=== PATIENT | male | born 1940 | race Caucasian/White ===

== ENCOUNTER 2022-05-24 12:21 | Inpatient (IN) | payer MEDICARE ==
[2022-05-24 14:19] VITALS: BMI 18.1
[2022-05-24] MEDS ORDERED: Acetaminophen 325 MG TAB PO PRN (15:07)
[2022-05-24] MEDS ORDERED: Lorazepam 2 MG/ML VIAL SLOW IVP PRN (15:43)
[2022-05-24] MEDS ORDERED: Potassium Chloride 20 MEQ TAB PO SCH (17:00)
[2022-05-24] MEDS: Sodium Chloride 0.9% 1,000 ML IV SCH (17:27)
[2022-05-24 17:35] LABS: Anion Gap 14 mmol/L (10-20); BUN (Urea Nitrogen) 50 mg/dL (8.4-25.7); Calc. Creatinine Clearance 30 mL/min (70-130); Calcium 8.3 mg/dL (7.8-10.44); Carbon Dioxide 21 mmol/L (23-31); Chloride 100 mmol/L (98-107); Estimated GFR 44; Glucose 93 mg/dL (83-110); Potassium 3.2 mmol/L (3.5-5.1); Sodium 132 mmol/L (136-145)
[2022-05-24] MEDS ORDERED: Famotidine 20 MG TAB PO SCH (21:00)
[2022-05-24 21:23] LABS: Anion Gap 15 mmol/L (10-20); BUN (Urea Nitrogen) 48 mg/dL (8.4-25.7); Calc. Creatinine Clearance 32 mL/min (70-130); Calcium 8.4 mg/dL (7.8-10.44); Carbon Dioxide 21 mmol/L (23-31); Chloride 101 mmol/L (98-107); Estimated GFR 47; Glucose 95 mg/dL (83-110); Potassium 3.7 mmol/L (3.5-5.1); Sodium 133 mmol/L (136-145)
[2022-05-25 01:12] LABS: Anion Gap 14 mmol/L (10-20); BUN (Urea Nitrogen) 46 mg/dL (8.4-25.7); Calc. Creatinine Clearance 37 mL/min (70-130); Calcium 8.2 mg/dL (7.8-10.44); Carbon Dioxide 18 mmol/L (23-31); Chloride 102 mmol/L (98-107); Estimated GFR 55; Glucose 86 mg/dL (83-110); Potassium 3.5 mmol/L (3.5-5.1); Sodium 130 mmol/L (136-145)
[2022-05-25 04:57] LABS: Anion Gap 14 mmol/L (10-20); BUN (Urea Nitrogen) 42 mg/dL (8.4-25.7); Calc. Creatinine Clearance 39 mL/min (70-130); Calcium 8.3 mg/dL (7.8-10.44); Carbon Dioxide 18 mmol/L (23-31); Chloride 103 mmol/L (98-107); Estimated GFR 59; Glucose 77 mg/dL (83-110); Potassium 3.1 mmol/L (3.5-5.1); Sodium 132 mmol/L (136-145)
[2022-05-25 05:04] LABS: Band 17 % (5-11); Burr Cells SLIGHT = 2-5 cells (100X) (0-1/hpf); Hemoglobin 10.3 g/dL (14.0-18.0); Lymphocytes 11 % (21-51); MDiff Complete? YES; Mean Corpuscular HGB CONC 33.8 g/dL (32.0-36.0); Mean Corpuscular Hemoglobin 34.5 pg (27.0-31.0); Mean Platelet Volume 9.2 fL (7.4-10.4); Monocytes 18 % (0-10); Neutrophil 54 % (42-75); Platelet Count 81 thou/uL (130-400); Platelet Morphology Comment Appears Decreased; RBC Distribution Width 12.1 % (11.5-14.5); Red Blood Cell (RBC) Count 2.98 mill/uL (4.70-6.10); White Blood Cell (WBC) Count 7.3 thou/uL (4.8-10.8)
[2022-05-25] MEDS: Sodium Chloride 0.9% 1,000 ML IV SCH ×2 (05:28→23:16)
[2022-05-25] MEDS ORDERED: Amlodipine 5 MG TAB PO SCH (09:00)
[2022-05-25 09:21] LABS: Anion Gap 15 mmol/L (10-20); BUN (Urea Nitrogen) 37 mg/dL (8.4-25.7); Calc. Creatinine Clearance 42 mL/min (70-130); Calcium 8.2 mg/dL (7.8-10.44); Carbon Dioxide 16 mmol/L (23-31); Chloride 104 mmol/L (98-107); Estimated GFR 66; Glucose 75 mg/dL (83-110); Potassium 3.1 mmol/L (3.5-5.1); Sodium 132 mmol/L (136-145)
[2022-05-25] MEDS ORDERED: Magnevist 469MG/ML 20 ML VIAL ONE (10:53)
[2022-05-25] MEDS: Folic Acid 1 MG TAB PO SCH (11:05)
[2022-05-25] MEDS: Thiamine 100 MG TAB PO SCH (11:05)
[2022-05-25 16:02] LABS: Campy jejuni + coli by PCR Negative (Negative); STEC Shiga Toxin 1+2 Negative (Negative); Salmonella spp. by PCR POSITIVE (Negative); Shigella spp + EIEC by PCR Negative (Negative)
[2022-05-25] MEDS ORDERED: Famotidine 20 MG TAB PO SCH (21:00)
[2022-05-26 04:53] LABS: Anion Gap 9 mmol/L (10-20); BUN (Urea Nitrogen) 22 mg/dL (8.4-25.7); Calc. Creatinine Clearance 63 mL/min (70-130); Calcium 8.2 mg/dL (7.8-10.44); Carbon Dioxide 22 mmol/L (23-31); Chloride 102 mmol/L (98-107); Estimated GFR 90; Glucose 94 mg/dL (83-110); Sodium 130 mmol/L (136-145)
[2022-05-26 04:57] LABS: Potassium 2.8 mmol/L (3.5-5.1)
[2022-05-26 05:14] LABS: Band 11 % (5-11); Hemoglobin 9.9 g/dL (14.0-18.0); Hypochromia SLIGHT = 6-15 cells (100X) (0-5/hpf); Lymphocytes 13 % (21-51); MDiff Complete? YES; Macrocytosis SLIGHT = 6-15 cells (100X) (0-5/hpf); Mean Corpuscular HGB CONC 33.9 g/dL (32.0-36.0); Mean Corpuscular Hemoglobin 34.5 pg (27.0-31.0); Mean Platelet Volume 8.8 fL (7.4-10.4); Monocytes 10 % (0-10); Neutrophil 66 % (42-75); Platelet Count 73 thou/uL (130-400); Platelet Morphology Comment Appears Decreased; RBC Distribution Width 11.9 % (11.5-14.5); Red Blood Cell (RBC) Count 2.87 mill/uL (4.70-6.10); White Blood Cell (WBC) Count 5.8 thou/uL (4.8-10.8)
[2022-05-26] MEDS ORDERED: Potassium Chloride 20 MEQ TAB PO SCH (05:30)
[2022-05-26] MEDS ORDERED: Electrolyte Replacement Protocol FS PRN (05:30)
[2022-05-26 06:48] LABS: Magnesium 1.3 mg/dL (1.6-2.6)
[2022-05-26] MEDS ORDERED: Magnesium Sulfate In Water 4 GM in Premix Bag 1 BAG IVPB SCH (08:00)
[2022-05-26] MEDS: Thiamine 100 MG TAB PO SCH (09:59)
[2022-05-26] MEDS: Sodium Chloride 0.9% 1,000 ML IV SCH ×2 (09:59→21:21)
[2022-05-26] MEDS: Folic Acid 1 MG TAB PO SCH (09:59)
[2022-05-26] MEDS: Potassium Chloride 20 MEQ TAB PO SCH ×2 (12:00→17:21)
[2022-05-27] MEDS: Potassium Chloride 20 MEQ TAB PO SCH ×2 (01:09→05:42)
[2022-05-27 04:48] LABS: ALT (SGPT) 60 U/L (8-55); AST (SGOT) 59 U/L (5-34); Albumin 2.8 g/dL (3.4-4.8); Alkaline Phosphatase 27 U/L (40-110); Bilirubin, Direct 0.4 mg/dL (0.1-0.3); Bilirubin, Total 0.7 mg/dL (0.2-1.2); Magnesium 1.5 mg/dL (1.6-2.6); Protein, Total 5.3 g/dL (5.8-8.1)
[2022-05-27 04:59] LABS: Anion Gap 10 mmol/L (10-20); BUN (Urea Nitrogen) 10 mg/dL (8.4-25.7); Calc. Creatinine Clearance 72 mL/min (70-130); Carbon Dioxide 23 mmol/L (23-31); Chloride 103 mmol/L (98-107); Estimated GFR 94; Glucose 92 mg/dL (83-110); Sodium 132 mmol/L (136-145)
[2022-05-27 05:09] LABS: HBCM Index 0.07 S/CO (0-0.79); HBSAg Index 0.45 S/CO (0-0.99); Hep A IgM AB Non-Reactive (NonReactive); Hep A IgM S/CO 0.51 S/CO (0-0.79); Hep B Surf Ag Non-Reactive S/CO (NonReactive); Hep C IgG Ab Non-Reactive (NonReactive); Hep C Index 0.16 S/CO (0-0.79); Hepatitis B Core IgM Abs Non-Reactive (NonReactive)
[2022-05-27 05:33] LABS: Band 3 % (5-11); Eosinophils 1 % (0-10); Hemoglobin 9.4 g/dL (14.0-18.0); Lymphocytes 27 % (21-51); MDiff Complete? YES; Mean Corpuscular Hemoglobin 33.4 pg (27.0-31.0); Mean Platelet Volume 8.5 fL (7.4-10.4); Metamyelocyte 2 % (0-0); Monocytes 23 % (0-10); Myelocyte 3 % (0-0); Neutrophil 41 % (42-75); Platelet Count 86 thou/uL (130-400); Platelet Morphology Comment Appears Decreased; RBC Distribution Width 12.1 % (11.5-14.5); Red Blood Cell (RBC) Count 2.82 mill/uL (4.70-6.10)
[2022-05-27] MEDS: Sodium Chloride 0.9% 1,000 ML IV SCH (05:42)
[2022-05-27] MEDS ORDERED: Magnesium 2 GM/50 ML(in water) 2 GM in Premix Bag 1 BAG IVPB SCH (06:00)
[2022-05-27] MEDS: Folic Acid 1 MG TAB PO SCH (08:27)
[2022-05-27] MEDS: Thiamine 100 MG TAB PO SCH (08:28)
[2022-05-28 06:01] LABS: Band 7 % (5-11); Hemoglobin 10.5 g/dL (14.0-18.0); Hypochromia SLIGHT = 6-15 cells (100X) (0-5/hpf); Lymphocytes 29 % (21-51); MDiff Complete? YES; Mean Corpuscular HGB CONC 33.6 g/dL (32.0-36.0); Mean Corpuscular Hemoglobin 34.5 pg (27.0-31.0); Monocytes 15 % (0-10); Neutrophil 48 % (42-75); Platelet Count 114 thou/uL (130-400); Platelet Morphology Comment Appears Decreased; RBC Distribution Width 12.3 % (11.5-14.5); Reactive Lymphocytes 1 % (0-10); Red Blood Cell (RBC) Count 3.06 mill/uL (4.70-6.10)
[2022-05-28 07:07] LABS: Anion Gap 11 mmol/L (10-20); BUN (Urea Nitrogen) 7 mg/dL (8.4-25.7); Calc. Creatinine Clearance 74 mL/min (70-130); Calcium 8.5 mg/dL (7.8-10.44); Carbon Dioxide 25 mmol/L (23-31); Chloride 99 mmol/L (98-107); Estimated GFR 95; Glucose 91 mg/dL (83-110); Magnesium 1.3 mg/dL (1.6-2.6); Potassium 3.9 mmol/L (3.5-5.1); Sodium 131 mmol/L (136-145)
[2022-05-28] MEDS: Folic Acid 1 MG TAB PO SCH (08:25)
[2022-05-28] MEDS: Thiamine 100 MG TAB PO SCH (08:25)
[2022-05-28] MEDS ORDERED: Magnesium Sulfate In Water 4 GM in Premix Bag 1 BAG IVPB SCH (09:00)
[2022-05-28] MEDS ORDERED: Saccharomyces boulardii 250 MG CAP PO SCH (14:45)
[2022-05-28 15:43] LABS: Magnesium 1.9 mg/dL (1.6-2.6)
[2022-05-28] MEDS ORDERED: Magnesium 2 GM/50 ML(in water) 2 GM in Premix Bag 1 BAG IVPB SCH (21:00)
[2022-05-29 05:34] LABS: Anion Gap 11 mmol/L (10-20); BUN (Urea Nitrogen) 7 mg/dL (8.4-25.7); Calc. Creatinine Clearance 73 mL/min (70-130); Calcium 8.7 mg/dL (7.8-10.44); Carbon Dioxide 30 mmol/L (23-31); Chloride 94 mmol/L (98-107); Estimated GFR 94; Glucose 102 mg/dL (83-110); Magnesium 1.8 mg/dL (1.6-2.6); Potassium 3.4 mmol/L (3.5-5.1); Sodium 132 mmol/L (136-145)
[2022-05-29] MEDS ORDERED: Magnesium 2 GM/50 ML(in water) 2 GM in Premix Bag 1 BAG IVPB SCH (08:00)
[2022-05-29] MEDS ORDERED: Potassium Chloride 20 MEQ TAB PO SCH (08:00)
[2022-05-29] MEDS: Thiamine 100 MG TAB PO SCH (08:30)
[2022-05-29] MEDS: Folic Acid 1 MG TAB PO SCH (08:30)
[2022-05-29] MEDS: Saccharomyces boulardii 250 MG CAP PO SCH (08:30)
[2022-05-30 05:42] LABS: Anion Gap 15 mmol/L (10-20); BUN (Urea Nitrogen) 10 mg/dL (8.4-25.7); Calc. Creatinine Clearance 69 mL/min (70-130); Calcium 8.6 mg/dL (7.8-10.44); Carbon Dioxide 21 mmol/L (23-31); Chloride 98 mmol/L (98-107); Estimated GFR 92; Glucose 100 mg/dL (83-110); Magnesium 1.5 mg/dL (1.6-2.6); Sodium 130 mmol/L (136-145)
[2022-05-30] MEDS ORDERED: Magnesium 2 GM/50 ML(in water) 2 GM in Premix Bag 1 BAG IVPB SCH (08:00)
[2022-05-30] MEDS: Thiamine 100 MG TAB PO SCH (08:35)
[2022-05-30] MEDS: Folic Acid 1 MG TAB PO SCH (08:35)
[2022-05-30] MEDS: Saccharomyces boulardii 250 MG CAP PO SCH (08:35)
[2022-05-31] MEDS: Thiamine 100 MG TAB PO SCH (08:34)
[2022-05-31] MEDS: Folic Acid 1 MG TAB PO SCH (08:34)
[2022-05-31] MEDS: Saccharomyces boulardii 250 MG CAP PO SCH (08:34)
[2022-05-31 08:55] VITALS: BP 100/67; TEMP 97.9
== END 2022-05-31 18:20 | disposition swing bed (61) | DRG 371 ==
LOC: INTOOBSV 13:57 → 2NO 13:57 → OBSVTOIN 05-25 07:37 → MSONC 05-27 16:15
PROVIDERS: ADMIT Hospitalist; ATTEND Hospitalist
DX: A02.0 Salmonella enteritis (principal); E43 Unspecified severe protein-calorie malnutrition; N17.9 Acute kidney failure, unspecified; E87.1 Hypo-osmolality and hyponatremia; E87.2 Acidosis; Z68.1 Body mass index [BMI] 19.9 or less, adult; Z20.822 Contact with and (suspected) exposure to COVID-19; Z66 Do not resuscitate; E87.6 Hypokalemia; F17.220 Nicotine dependence, chewing tobacco, uncomplicated; I10 Essential (primary) hypertension; G93.89 Other specified disorders of brain; E86.0 Dehydration; D69.6 Thrombocytopenia, unspecified; L89.322 Pressure ulcer of left buttock, stage 2; L89.312 Pressure ulcer of right buttock, stage 2; Z79.899 Other long term (current) drug therapy
CPT/HCPCS: 36415; 70552; 72192; 80048; 80074; 80076; 83605; 83630; 83735; 85025; 87324; 87449; 87505; 93306; 95712; 95819; 95957; 97139; A9579; G0378; J3475; J7050

== ENCOUNTER 2023-03-25 19:22 | Inpatient (IN) | payer MEDICARE ==
[2023-03-25] MEDS ORDERED: LORazepam 2 MG/ML SYR.(CARPUJECT) ONE (19:46)
[2023-03-25 20:17] LABS: #Monocytes 2.5 thou/uL (0.11-0.59); #Neutrophils 11.1 thou/uL (1.40-6.50); %Basophils 0.1 % (0.0-1.0); %Eosinophils 0.1 % (0.0-10.0); %Lymphocytes 3.5 % (21.0-51.0); %Monocytes 17.4 % (0.0-10.0); %Neutrophils 78.4 % (42.0-75.0); Hemoglobin 11.7 g/dL (14.0-18.0); Mean Corpuscular HGB CONC 35.3 g/dL (32.0-36.0); Mean Corpuscular Hemoglobin 34.3 pg (27.0-31.0); Mean Corpuscular Volume 97.1 fl (78.0-98.0); Mean Platelet Volume 10.3 fL (7.4-10.4); Platelet Count 167 10x3/uL (130-400); RBC Distribution Width 12.1 % (11.5-14.5); Red Blood Cell (RBC) Count 3.41 mill/uL (4.70-6.10); White Blood Cell (WBC) Count 14.1 10x3/uL (4.8-10.8)
[2023-03-25 20:39] LABS: ALT (SGPT) 107 U/L (8-55); AST (SGOT) 464 U/L (5-34); Albumin 3.3 g/dL (3.4-4.8); Alkaline Phosphatase 50 U/L (40-110); Anion Gap 15 mmol/L (10-20); BUN (Urea Nitrogen) 9 mg/dL (8.4-25.7); Bilirubin, Total 0.7 mg/dL (0.2-1.2); Calc. Creatinine Clearance 0 mL/min (70-130); Calcium 7.6 mg/dL (7.8-10.44); Carbon Dioxide 14 mmol/L (23-31); Chloride 102 mmol/L (98-107); Estimated GFR 89; Globulin 2.6 g/dL (2.4-3.5); Glucose 144 mg/dL (83-110); Magnesium 1.2 mg/dL (1.6-2.6); Potassium 4.7 mmol/L (3.5-5.1); Protein, Total 5.9 g/dL (5.8-8.1); Sodium 126 mmol/L (136-145)
[2023-03-25] MEDS ORDERED: Magnesium 2 GM/50 ML BAG (IN WATER) ONE (21:04)
[2023-03-25] MEDS ORDERED: Dextrose 5% in Water 1,000 ML IV PRN (21:50)
[2023-03-25] MEDS ORDERED: hydrALAZINE 20 MG/ML VIAL SLOW IVP PRN (21:50)
[2023-03-25] MEDS ORDERED: Morphine 4 MG/ML VIAL SLOW IVP PRN (21:50)
[2023-03-25] MEDS ORDERED: Morphine 2 MG/ML VIAL SLOW IVP PRN (21:50)
[2023-03-25] MEDS ORDERED: Glucagon 1 MG/ML KIT IM PRN (21:50)
[2023-03-25] MEDS ORDERED: Ondansetron PF 4 MG/2 ML Vial IVP PRN (21:50)
[2023-03-25] MEDS ORDERED: Dextrose 50% Abboject 50 ML SYRINGE SLOW IVP PRN (21:50)
[2023-03-25] MEDS ORDERED: Sodium Chloride 0.9% 1,000 ML IV SCH (22:00)
[2023-03-25] MEDS ORDERED: Magnesium 2 GM/50 ML(in water) 2 GM in Premix Bag 1 BAG IVPB SCH (22:00)
[2023-03-25] MEDS ORDERED: Metoprolol Tartrate 50 MG TAB PO SCH (22:00)
[2023-03-25 22:01] LABS: CK (CPK) 23756 U/L (30-200)
[2023-03-25 22:04] LABS: Magnesium 1.1 mg/dL (1.6-2.6); Phosphorus 2.7 mg/dL (2.3-4.7)
[2023-03-25 22:20] LABS: INR-International Normal Ratio 1.2; PTT 31.4 sec (22.9-36.1); Prothrombin Time 15.4 sec (12.0-14.7)
[2023-03-25] MEDS ORDERED: Sodium Phosphate 15 MMOL in Sodium Chloride 0.9% 250 ML 250 ML IVPB SCH (23:00)
[2023-03-25 23:06] LABS: Lactic Acid 2.6 mmol/L (0.5-2.2)
[2023-03-26] MEDS: Sodium Chloride 0.9% 1,000 ML IV SCH ×5 (00:02→22:11)
[2023-03-26 01:11] LABS: Bacteria/HPF None Seen HPF (None Seen); Bilirubin Negative (Negative); Blood, Urine 3+ (Negative); CAUTI Indications for Culture Alt mental st,lethar; Clarity Clear (Clear); Glucose, Urine (Dipstick) Normal (Negative); Ketone, Urine Negative (Negative); Leukocyte Negative Leu/uL (Negative); Nitrite Negative (Negative); Protein, Urine (Dipstick) 30 mg/dL (Neg-Trace); RBC/HPF 0-3 HPF (0-3); Specific Gravity, Urine 1.018 (1.002-1.036); Squamous Epithelial None Seen HPF (0-3); Urobilinogen Normal mg/dL (Less than 2); WBC/HPF 0-3 HPF (0-3)
[2023-03-26 01:43] LABS: Urine Culture Reflex No No
[2023-03-26] MEDS: Oxazepam 10 MG CAP PO SCH ×4 (01:56→22:08)
[2023-03-26 03:45] LABS: #Monocytes 2.7 thou/uL (0.11-0.59); #Neutrophils 13.3 thou/uL (1.40-6.50); %Basophils 0.1 % (0.0-1.0); %Lymphocytes 5.8 % (21.0-51.0); %Monocytes 15.9 % (0.0-10.0); %Neutrophils 77.8 % (42.0-75.0); Hemoglobin 10.7 g/dL (14.0-18.0); Mean Corpuscular HGB CONC 35.3 g/dL (32.0-36.0); Mean Corpuscular Hemoglobin 34.3 pg (27.0-31.0); Mean Corpuscular Volume 97.1 fl (78.0-98.0); Platelet Count 147 10x3/uL (130-400); RBC Distribution Width 12.1 % (11.5-14.5); Red Blood Cell (RBC) Count 3.12 mill/uL (4.70-6.10); White Blood Cell (WBC) Count 17.1 10x3/uL (4.8-10.8)
[2023-03-26 04:04] LABS: Lactic Acid 2.8 mmol/L (0.5-2.2)
[2023-03-26 04:10] LABS: Anion Gap 12 mmol/L (10-20); BUN (Urea Nitrogen) 8 mg/dL (8.4-25.7); Calc. Creatinine Clearance 67 mL/min (70-130); Calcium 7.3 mg/dL (7.8-10.44); Carbon Dioxide 15 mmol/L (23-31); Chloride 105 mmol/L (98-107); Estimated GFR 89; Glucose 129 mg/dL (83-110); Magnesium 1.6 mg/dL (1.6-2.6); Phosphorus 2.7 mg/dL (2.3-4.7); Potassium 4.2 mmol/L (3.5-5.1); Sodium 128 mmol/L (136-145)
[2023-03-26 04:16] LABS: Troponin I 0.246 ng/mL (< 0.028)
[2023-03-26 04:36] LABS: CK (CPK) 15765 U/L (30-200)
[2023-03-26] MEDS ORDERED: levETIRAcetam in NS 500 MG in Premix Bag 1 BAG IVPB SCH (09:00)
[2023-03-26] MEDS ORDERED: Folic Acid 1 MG TAB PO SCH (09:00)
[2023-03-26] MEDS ORDERED: Metoprolol Tartrate 50 MG TAB PO SCH ×2 (09:00→21:15)
[2023-03-26] MEDS: Multivitamin W/ Minerals 1 TAB PO SCH (11:16)
[2023-03-26] MEDS: Famotidine/PF 20 mg/2ml Vial SLOW IVP SCH ×2 (11:16→22:06)
[2023-03-26] MEDS: levETIRAcetam 500 MG/5 ML VIAL SLOW IVP SCH ×2 (11:16→22:06)
[2023-03-26] MEDS: Thiamine 100 MG TAB PO SCH (11:16)
[2023-03-26 16:36] LABS: Hemoglobin 10.1 g/dL (14.0-18.0); Manual Diff?? YES; Mean Corpuscular HGB CONC 34.5 g/dL (32.0-36.0); Mean Corpuscular Hemoglobin 34.4 pg (27.0-31.0); Mean Corpuscular Volume 99.7 fl (78.0-98.0); Mean Platelet Volume 10.4 fL (7.4-10.4); Platelet Count 143 10x3/uL (130-400); RBC Distribution Width 12.3 % (11.5-14.5); Red Blood Cell (RBC) Count 2.94 mill/uL (4.70-6.10); White Blood Cell (WBC) Count 16.4 10x3/uL (4.8-10.8)
[2023-03-26 16:44] LABS: Delete Auto Diff?? YES
[2023-03-26 17:07] LABS: Band 7 % (5-11); Burr Cells SLIGHT = 2-5 cells HPF (0-1); CellaVision Operator ID LAB.KB; Lymphocytes 9 % (21-51); Macrocytosis SLIGHT = 6-15 cells HPF (0-5); Monocytes 12 % (0-10); Neutrophil 72 % (42-75); Ovalocytes SLIGHT = 2-5 cells HPF (0-1); Platelet Adequacy Comment Platelets Normal; Polychromasia SLIGHT = 2-3 cells HPF (0-2); Smudge Cells 18.2 %; Total Cell Count 99
[2023-03-26] MEDS ORDERED: Labetalol HCl 100 MG/20 ML VIAL SLOW IVP PRN (21:00)
[2023-03-26] MEDS ORDERED: QUEtiapine 25 MG TAB PO SCH (21:00)
[2023-03-26] MEDS: Lisinopril 20 MG TAB PO SCH (22:06)
[2023-03-27] MEDS: Sodium Chloride 0.9% 1,000 ML IV SCH ×3 (02:00→20:26)
[2023-03-27 03:57] LABS: Hemoglobin 9.4 g/dL (14.0-18.0); Manual Diff?? YES; Mean Corpuscular HGB CONC 33.6 g/dL (32.0-36.0); Mean Corpuscular Hemoglobin 34.3 pg (27.0-31.0); Mean Corpuscular Volume 102.2 fl (78.0-98.0); Mean Platelet Volume 10.8 fL (7.4-10.4); Platelet Count 134 10x3/uL (130-400); RBC Distribution Width 12.5 % (11.5-14.5); Red Blood Cell (RBC) Count 2.74 mill/uL (4.70-6.10); White Blood Cell (WBC) Count 11.6 10x3/uL (4.8-10.8)
[2023-03-27 04:11] LABS: Delete Auto Diff?? YES
[2023-03-27 04:20] LABS: Anion Gap 14 mmol/L (10-20); BUN (Urea Nitrogen) 9 mg/dL (8.4-25.7); Calc. Creatinine Clearance 75 mL/min (70-130); Carbon Dioxide 18 mmol/L (23-31); Chloride 109 mmol/L (98-107); Estimated GFR 92; Glucose 83 mg/dL (83-110); Magnesium 1.5 mg/dL (1.6-2.6); Phosphorus 2.6 mg/dL (2.3-4.7); Potassium 5.1 mmol/L (3.5-5.1); Sodium 136 mmol/L (136-145)
[2023-03-27 04:47] LABS: CK (CPK) 7983 U/L (30-200)
[2023-03-27 05:27] LABS: Band 3 % (5-11); Lymphocytes 10 % (21-51); Monocytes 15 % (0-10); Neutrophil 72 % (42-75)
[2023-03-27] MEDS: Oxazepam 10 MG CAP PO SCH ×3 (05:33→20:24)
[2023-03-27] MEDS ORDERED: Folic Acid 1 MG TAB PO SCH (09:00)
[2023-03-27] MEDS ORDERED: Thiamine 100 MG TAB PO SCH (09:00)
[2023-03-27] MEDS ORDERED: Metoprolol Tartrate 50 MG TAB PO SCH (09:00)
[2023-03-27] MEDS: Lisinopril 20 MG TAB PO SCH ×2 (09:23→20:23)
[2023-03-27] MEDS: Thiamine 100 MG TAB PO SCH (09:23)
[2023-03-27] MEDS: Multivitamin W/ Minerals 1 TAB PO SCH (09:23)
[2023-03-27] MEDS: Folic Acid 1 MG TAB PO SCH (09:23)
[2023-03-27] MEDS: Metoprolol Tartrate 50 MG TAB PO SCH ×2 (09:24→20:23)
[2023-03-27] MEDS: Famotidine/PF 20 mg/2ml Vial SLOW IVP SCH (09:24)
[2023-03-27] MEDS: levETIRAcetam 500 MG/5 ML VIAL SLOW IVP SCH ×2 (09:24→20:23)
[2023-03-27] MEDS: Melatonin 3 MG TAB PO PRN (20:23)
[2023-03-27] MEDS: Famotidine 20 MG TAB PER TUBE SCH (20:23)
[2023-03-28 03:44] LABS: #Monocytes 1.6 thou/uL (0.11-0.59); #Neutrophils 5.7 thou/uL (1.40-6.50); %Basophils 0.1 % (0.0-1.0); %Monocytes 19.5 % (0.0-10.0); %Neutrophils 68.7 % (42.0-75.0); Hemoglobin 8.6 g/dL (14.0-18.0); Mean Corpuscular HGB CONC 34.1 g/dL (32.0-36.0); Mean Corpuscular Hemoglobin 34.4 pg (27.0-31.0); Mean Corpuscular Volume 100.8 fl (78.0-98.0); Platelet Count 138 10x3/uL (130-400); RBC Distribution Width 12.2 % (11.5-14.5); White Blood Cell (WBC) Count 8.3 10x3/uL (4.8-10.8)
[2023-03-28 04:03] LABS: Anion Gap 11 mmol/L (10-20); BUN (Urea Nitrogen) 9 mg/dL (8.4-25.7); Calc. Creatinine Clearance 88 mL/min (70-130); Calcium 7.3 mg/dL (7.8-10.44); Carbon Dioxide 19 mmol/L (23-31); Chloride 108 mmol/L (98-107); Estimated GFR 96; Glucose 88 mg/dL (83-110); Potassium 3.3 mmol/L (3.5-5.1); Sodium 135 mmol/L (136-145)
[2023-03-28 04:16] LABS: CK (CPK) 6525 U/L (30-200)
[2023-03-28] MEDS: Oxazepam 10 MG CAP PO SCH ×2 (07:04→19:53)
[2023-03-28] MEDS ORDERED: Magnesium 2 GM/50 ML(in water) 2 GM in Premix Bag 1 BAG IVPB SCH (07:15)
[2023-03-28] MEDS ORDERED: Potassium Chloride 20 MEQ TAB PO SCH ×2 (07:15→08:00)
[2023-03-28] MEDS: Sodium Chloride 0.9% 1,000 ML IV SCH (07:29)
[2023-03-28] MEDS ORDERED: Potassium Bicarbonate/Cit Ac 20 MEQ TAB PO SCH ×2 (07:45→08:00)
[2023-03-28 08:12] LABS: Magnesium 1.2 mg/dL (1.6-2.6); Phosphorus 1.5 mg/dL (2.3-4.7)
[2023-03-28] MEDS: Famotidine 20 MG TAB PER TUBE SCH ×2 (08:43→19:53)
[2023-03-28] MEDS: Folic Acid 1 MG TAB PO SCH (08:44)
[2023-03-28] MEDS: Multivitamin W/ Minerals 1 TAB PO SCH (08:44)
[2023-03-28] MEDS: Thiamine 100 MG TAB PO SCH (08:44)
[2023-03-28] MEDS: levETIRAcetam 500 MG/5 ML VIAL SLOW IVP SCH ×2 (08:44→19:52)
[2023-03-28] MEDS ORDERED: Furosemide 20 MG/2 ML VIAL SLOW IVP SCH (09:15)
[2023-03-28] MEDS: Lisinopril 20 MG TAB PO SCH ×3 (09:24→19:52)
[2023-03-28] MEDS: Metoprolol Tartrate 50 MG TAB PO SCH ×2 (09:24→19:53)
[2023-03-28] MEDS: Potassium Chloride 20 MEQ in Premix Bag 1 BAG IVPB SCH ×2 (09:27→12:12)
[2023-03-28 09:50] VITALS: BMI 22.9
[2023-03-28] MEDS ORDERED: Potassium Phosphate 30 MMOL in Sodium Chloride 0.9% 250 ML 250 ML IVPB SCH ×2 (12:45→19:00)
[2023-03-28 16:45] LABS: Anion Gap 11 mmol/L (10-20); BUN (Urea Nitrogen) 11 mg/dL (8.4-25.7); Calc. Creatinine Clearance 82 mL/min (70-130); Calcium 8.2 mg/dL (7.8-10.44); Carbon Dioxide 23 mmol/L (23-31); Chloride 103 mmol/L (98-107); Estimated GFR 93; Glucose 136 mg/dL (83-110); Magnesium 1.5 mg/dL (1.6-2.6); Potassium 3.4 mmol/L (3.5-5.1); Sodium 134 mmol/L (136-145)
[2023-03-28] MEDS ORDERED: Magnesium 2 GM/50 ML(in water) 4 GM in Premix Bag 1 BAG IVPB SCH (17:30)
[2023-03-28] MEDS: Melatonin 3 MG TAB PO PRN (23:22)
[2023-03-29 05:44] LABS: Anion Gap 11 mmol/L (10-20); BUN (Urea Nitrogen) 11 mg/dL (8.4-25.7); Calc. Creatinine Clearance 97 mL/min (70-130); Calcium 8.1 mg/dL (7.8-10.44); Carbon Dioxide 24 mmol/L (23-31); Chloride 106 mmol/L (98-107); Estimated GFR 98; Glucose 107 mg/dL (83-110); Magnesium 1.5 mg/dL (1.6-2.6); Phosphorus 3.6 mg/dL (2.3-4.7); Potassium 3.9 mmol/L (3.5-5.1); Sodium 137 mmol/L (136-145)
[2023-03-29] MEDS ORDERED: Magnesium Sulfate In Water 4 GM in Premix Bag 1 BAG IVPB SCH (06:30)
[2023-03-29 07:51] LABS: Hemoglobin 9.3 g/dL (14.0-18.0); Manual Diff?? YES; Mean Corpuscular HGB CONC 34.3 g/dL (32.0-36.0); Mean Corpuscular Hemoglobin 34.3 pg (27.0-31.0); Mean Platelet Volume 9.5 fL (7.4-10.4); Platelet Count 173 10x3/uL (130-400); RBC Distribution Width 12.6 % (11.5-14.5); Red Blood Cell (RBC) Count 2.71 mill/uL (4.70-6.10); White Blood Cell (WBC) Count 8.3 10x3/uL (4.8-10.8)
[2023-03-29 07:53] LABS: Delete Auto Diff?? YES
[2023-03-29 08:21] LABS: Band 1 % (5-11); CellaVision Operator ID lab.abc; Lymphocytes 13 % (21-51); Metamyelocyte 1 % (0-0); Monocytes 10 % (0-10); Neutrophil 76 % (42-75); Platelet Adequacy Comment Platelets Normal; Polychromasia SLIGHT = 2-3 cells HPF (0-2); Smudge Cells 5.9 %; Total Cell Count 102
[2023-03-29] MEDS: levETIRAcetam 500 MG/5 ML VIAL SLOW IVP SCH ×2 (09:12→22:31)
[2023-03-29] MEDS: Multivitamin W/ Minerals 1 TAB PO SCH (09:13)
[2023-03-29] MEDS: Thiamine 100 MG TAB PO SCH (09:13)
[2023-03-29] MEDS: Tamsulosin HCl 0.4 MG CAP PO SCH (09:13)
[2023-03-29] MEDS: Senokot S 8.6-50 MG TAB PO SCH ×2 (09:13→22:33)
[2023-03-29] MEDS: Folic Acid 1 MG TAB PO SCH (09:13)
[2023-03-29] MEDS: Metoprolol Tartrate 50 MG TAB PO SCH ×2 (09:13→22:32)
[2023-03-29] MEDS: Lisinopril 20 MG TAB PO SCH ×2 (09:13→22:32)
[2023-03-29] MEDS: Polyethylene Glycol 3350 17 GM Packet PO SCH (09:13)
[2023-03-29] MEDS: Famotidine 20 MG TAB PER TUBE SCH ×2 (09:13→22:33)
[2023-03-29] MEDS: Oxazepam 10 MG CAP PO SCH ×2 (09:13→22:32)
[2023-03-29 12:34] LABS: CK (CPK) 4998 U/L (30-200)
[2023-03-29] MEDS ORDERED: Magnesium 2 GM/50 ML(in water) 2 GM in Premix Bag 1 BAG IVPB SCH (17:30)
[2023-03-29 19:05] LABS: Phosphorus 3.5 mg/dL (2.3-4.7)
[2023-03-29 19:08] LABS: Anion Gap 10 mmol/L (10-20); BUN (Urea Nitrogen) 12 mg/dL (8.4-25.7); Calc. Creatinine Clearance 92 mL/min (70-130); Calcium 8.3 mg/dL (7.8-10.44); Carbon Dioxide 25 mmol/L (23-31); Chloride 105 mmol/L (98-107); Estimated GFR 96; Glucose 152 mg/dL (83-110); Magnesium 2.3 mg/dL (1.6-2.6); Potassium 3.2 mmol/L (3.5-5.1); Sodium 137 mmol/L (136-145)
[2023-03-29] MEDS: Melatonin 3 MG TAB PO PRN (22:32)
[2023-03-30 07:37] LABS: Anion Gap 10 mmol/L (10-20); BUN (Urea Nitrogen) 15 mg/dL (8.4-25.7); CK (CPK) 1752 U/L (30-200); Calc. Creatinine Clearance 88 mL/min (70-130); Calcium 8.2 mg/dL (7.8-10.44); Carbon Dioxide 28 mmol/L (23-31); Chloride 105 mmol/L (98-107); Estimated GFR 95; Glucose 127 mg/dL (83-110); Magnesium 1.8 mg/dL (1.6-2.6); Phosphorus 2.3 mg/dL (2.3-4.7); Potassium 3.3 mmol/L (3.5-5.1); Sodium 140 mmol/L (136-145)
[2023-03-30] MEDS ORDERED: Magnesium 2 GM/50 ML(in water) 2 GM in Premix Bag 1 BAG IVPB SCH (08:15)
[2023-03-30] MEDS ORDERED: Potassium Chloride 20 MEQ TAB PO SCH (08:15)
[2023-03-30] MEDS: Thiamine 100 MG TAB PO SCH (08:59)
[2023-03-30] MEDS: Senokot S 8.6-50 MG TAB PO SCH ×2 (08:59→22:15)
[2023-03-30] MEDS: Tamsulosin HCl 0.4 MG CAP PO SCH (08:59)
[2023-03-30] MEDS: Metoprolol Tartrate 50 MG TAB PO SCH ×2 (08:59→22:14)
[2023-03-30] MEDS: Famotidine 20 MG TAB PER TUBE SCH ×2 (09:00→22:14)
[2023-03-30] MEDS: Folic Acid 1 MG TAB PO SCH (09:00)
[2023-03-30] MEDS: levETIRAcetam 500 MG/5 ML VIAL SLOW IVP SCH ×2 (09:00→22:14)
[2023-03-30] MEDS: Oxazepam 10 MG CAP PO SCH ×2 (09:00→22:14)
[2023-03-30] MEDS ORDERED: Potassium Phosphate 22 MMOL in Sodium Chloride 0.9% 250 ML 250 ML IVPB SCH (09:00)
[2023-03-30] MEDS: Lisinopril 20 MG TAB PO SCH ×2 (09:00→22:14)
[2023-03-30] MEDS: Multivitamin W/ Minerals 1 TAB PO SCH (09:01)
[2023-03-30] MEDS: Polyethylene Glycol 3350 17 GM Packet PO SCH (09:01)
[2023-03-30] MEDS: Melatonin 3 MG TAB PO PRN (22:13)
[2023-03-31] MEDS: Metoprolol Tartrate 50 MG TAB PO SCH ×2 (08:43→21:09)
[2023-03-31] MEDS: Thiamine 100 MG TAB PO SCH (08:43)
[2023-03-31] MEDS: Senokot S 8.6-50 MG TAB PO SCH ×2 (08:43→23:09)
[2023-03-31] MEDS: levETIRAcetam 500 MG/5 ML VIAL SLOW IVP SCH ×2 (08:43→21:09)
[2023-03-31] MEDS: Lisinopril 20 MG TAB PO SCH ×2 (08:43→21:09)
[2023-03-31] MEDS: Multivitamin W/ Minerals 1 TAB PO SCH (08:43)
[2023-03-31] MEDS: Tamsulosin HCl 0.4 MG CAP PO SCH (08:43)
[2023-03-31] MEDS: Famotidine 20 MG TAB PER TUBE SCH ×2 (08:44→21:10)
[2023-03-31] MEDS: Polyethylene Glycol 3350 17 GM Packet PO SCH (08:44)
[2023-03-31] MEDS: Folic Acid 1 MG TAB PO SCH (08:44)
[2023-03-31] MEDS: Oxazepam 10 MG CAP PO SCH ×2 (08:44→21:11)
[2023-04-01] MEDS: Famotidine 20 MG TAB PER TUBE SCH ×2 (08:04→20:35)
[2023-04-01] MEDS: Tamsulosin HCl 0.4 MG CAP PO SCH (08:05)
[2023-04-01] MEDS: Metoprolol Tartrate 50 MG TAB PO SCH ×2 (08:05→20:35)
[2023-04-01] MEDS: Multivitamin W/ Minerals 1 TAB PO SCH (08:05)
[2023-04-01] MEDS: Thiamine 100 MG TAB PO SCH (08:05)
[2023-04-01] MEDS: Lisinopril 20 MG TAB PO SCH ×2 (08:05→20:34)
[2023-04-01] MEDS: Folic Acid 1 MG TAB PO SCH (08:05)
[2023-04-01] MEDS: levETIRAcetam 500 MG/5 ML VIAL SLOW IVP SCH ×2 (08:05→20:35)
[2023-04-01] MEDS: Oxazepam 10 MG CAP PO SCH (08:05)
[2023-04-01] MEDS: Senokot S 8.6-50 MG TAB PO SCH ×2 (08:06→20:27)
[2023-04-01] MEDS: Polyethylene Glycol 3350 17 GM Packet PO SCH (08:06)
[2023-04-01] MEDS: Melatonin 3 MG TAB PO PRN (20:34)
[2023-04-02] MEDS: Polyethylene Glycol 3350 17 GM Packet PO SCH (09:22)
[2023-04-02] MEDS: Thiamine 100 MG TAB PO SCH (09:23)
[2023-04-02] MEDS: Metoprolol Tartrate 50 MG TAB PO SCH ×2 (09:23→20:54)
[2023-04-02] MEDS: Multivitamin W/ Minerals 1 TAB PO SCH (09:23)
[2023-04-02] MEDS: Lisinopril 20 MG TAB PO SCH ×2 (09:23→20:54)
[2023-04-02] MEDS: Folic Acid 1 MG TAB PO SCH (09:24)
[2023-04-02] MEDS: levETIRAcetam 500 MG/5 ML VIAL SLOW IVP SCH ×2 (09:24→20:54)
[2023-04-02] MEDS: Oxazepam 10 MG CAP PO SCH (09:24)
[2023-04-02] MEDS: Tamsulosin HCl 0.4 MG CAP PO SCH (09:24)
[2023-04-02] MEDS: Famotidine 20 MG TAB PER TUBE SCH ×2 (09:24→20:54)
[2023-04-02] MEDS: Senokot S 8.6-50 MG TAB PO SCH ×2 (09:25→20:55)
[2023-04-02] MEDS: Melatonin 3 MG TAB PO PRN (20:55)
[2023-04-03] MEDS: Famotidine 20 MG TAB PER TUBE SCH ×2 (10:13→21:02)
[2023-04-03] MEDS: levETIRAcetam 500 MG/5 ML VIAL SLOW IVP SCH ×2 (10:14→21:02)
[2023-04-03] MEDS: Tamsulosin HCl 0.4 MG CAP PO SCH (10:14)
[2023-04-03] MEDS: Thiamine 100 MG TAB PO SCH (10:14)
[2023-04-03] MEDS: Lisinopril 20 MG TAB PO SCH ×2 (10:14→21:02)
[2023-04-03] MEDS: Oxazepam 10 MG CAP PO SCH (10:14)
[2023-04-03] MEDS: Multivitamin W/ Minerals 1 TAB PO SCH (10:14)
[2023-04-03] MEDS: Folic Acid 1 MG TAB PO SCH (10:14)
[2023-04-03] MEDS: Metoprolol Tartrate 50 MG TAB PO SCH ×2 (10:14→21:03)
[2023-04-03] MEDS: Senokot S 8.6-50 MG TAB PO SCH ×2 (10:15→21:03)
[2023-04-03] MEDS: Polyethylene Glycol 3350 17 GM Packet PO SCH (10:15)
[2023-04-03] MEDS: Melatonin 3 MG TAB PO PRN (21:02)
[2023-04-04] MEDS: Tamsulosin HCl 0.4 MG CAP PO SCH (09:27)
[2023-04-04] MEDS: Famotidine 20 MG TAB PER TUBE SCH ×2 (09:27→21:29)
[2023-04-04] MEDS: levETIRAcetam 500 MG/5 ML VIAL SLOW IVP SCH ×2 (09:27→21:29)
[2023-04-04] MEDS: Thiamine 100 MG TAB PO SCH (09:27)
[2023-04-04] MEDS: Folic Acid 1 MG TAB PO SCH (09:27)
[2023-04-04] MEDS: Oxazepam 10 MG CAP PO SCH (09:27)
[2023-04-04] MEDS: Metoprolol Tartrate 50 MG TAB PO SCH ×2 (09:27→21:29)
[2023-04-04] MEDS: Lisinopril 20 MG TAB PO SCH ×2 (09:27→21:29)
[2023-04-04] MEDS: Multivitamin W/ Minerals 1 TAB PO SCH (09:43)
[2023-04-04] MEDS: Polyethylene Glycol 3350 17 GM Packet PO SCH (09:43)
[2023-04-04] MEDS: Senokot S 8.6-50 MG TAB PO SCH ×2 (09:44→21:29)
[2023-04-05 07:44] LABS: #Eosinphils 0.1 thou/uL (0.0-0.7); #Monocytes 1.9 thou/uL (0.11-0.59); #Neutrophils 6.1 thou/uL (1.40-6.50); %Basophils 0.4 % (0.0-1.0); %Eosinophils 1.3 % (0.0-10.0); %Lymphocytes 18.1 % (21.0-51.0); %Monocytes 18.5 % (0.0-10.0); Hemoglobin 9.7 g/dL (14.0-18.0); Mean Corpuscular HGB CONC 32.1 g/dL (32.0-36.0); Mean Platelet Volume 9.9 fL (7.4-10.4); Platelet Count 213 10x3/uL (130-400); RBC Distribution Width 13.1 % (11.5-14.5); Red Blood Cell (RBC) Count 2.85 mill/uL (4.70-6.10)
[2023-04-05 08:04] LABS: Anion Gap 13 mmol/L (10-20); BUN (Urea Nitrogen) 25 mg/dL (8.4-25.7); Calc. Creatinine Clearance 90 mL/min (70-130); Calcium 9.3 mg/dL (7.8-10.44); Carbon Dioxide 26 mmol/L (23-31); Chloride 105 mmol/L (98-107); Estimated GFR 96; Glucose 119 mg/dL (83-110); Potassium 3.7 mmol/L (3.5-5.1); Sodium 140 mmol/L (136-145)
[2023-04-05] MEDS: Thiamine 100 MG TAB PO SCH (09:31)
[2023-04-05] MEDS: Oxazepam 10 MG CAP PO SCH (09:31)
[2023-04-05] MEDS: Tamsulosin HCl 0.4 MG CAP PO SCH (09:32)
[2023-04-05] MEDS: Famotidine 20 MG TAB PER TUBE SCH ×2 (09:32→20:44)
[2023-04-05] MEDS: Metoprolol Tartrate 50 MG TAB PO SCH ×2 (09:32→20:45)
[2023-04-05] MEDS: Folic Acid 1 MG TAB PO SCH (09:32)
[2023-04-05] MEDS: Lisinopril 20 MG TAB PO SCH ×2 (09:32→20:45)
[2023-04-05] MEDS: levETIRAcetam 500 MG/5 ML VIAL SLOW IVP SCH ×2 (09:32→20:45)
[2023-04-05] MEDS: Multivitamin W/ Minerals 1 TAB PO SCH (09:33)
[2023-04-05] MEDS: Polyethylene Glycol 3350 17 GM Packet PO SCH (09:33)
[2023-04-05] MEDS: Senokot S 8.6-50 MG TAB PO SCH ×2 (09:33→20:44)
[2023-04-05] MEDS: CEFAZOLIN 2 GM in Sodium Chloride 0.9% 100 ML IVPB SCH ×2 (14:50→20:44)
[2023-04-06] MEDS: CEFAZOLIN 2 GM in Sodium Chloride 0.9% 100 ML IVPB SCH ×3 (06:33→21:44)
[2023-04-06] MEDS: Polyethylene Glycol 3350 17 GM Packet PO SCH (10:18)
[2023-04-06] MEDS: Senokot S 8.6-50 MG TAB PO SCH ×2 (10:18→21:44)
[2023-04-06] MEDS: levETIRAcetam 500 MG/5 ML VIAL SLOW IVP SCH ×2 (10:18→21:44)
[2023-04-06] MEDS: Metoprolol Tartrate 50 MG TAB PO SCH ×2 (10:18→21:00)
[2023-04-06] MEDS: Multivitamin W/ Minerals 1 TAB PO SCH (10:19)
[2023-04-06] MEDS: Folic Acid 1 MG TAB PO SCH (10:19)
[2023-04-06] MEDS: Tamsulosin HCl 0.4 MG CAP PO SCH (10:19)
[2023-04-06] MEDS: Lisinopril 20 MG TAB PO SCH ×2 (10:19→21:00)
[2023-04-06] MEDS: Famotidine 20 MG TAB PER TUBE SCH ×2 (10:19→21:44)
[2023-04-06] MEDS: Oxazepam 10 MG CAP PO SCH (10:20)
[2023-04-06] MEDS: Thiamine 100 MG TAB PO SCH (10:20)
[2023-04-07] MEDS: CEFAZOLIN 2 GM in Sodium Chloride 0.9% 100 ML IVPB SCH (05:28)
[2023-04-07] MEDS: Polyethylene Glycol 3350 17 GM Packet PO SCH (09:44)
[2023-04-07] MEDS: Tamsulosin HCl 0.4 MG CAP PO SCH (09:45)
[2023-04-07] MEDS: Famotidine 20 MG TAB PER TUBE SCH ×2 (09:45→21:41)
[2023-04-07] MEDS: Lisinopril 20 MG TAB PO SCH ×2 (09:45→21:44)
[2023-04-07] MEDS: Oxazepam 10 MG CAP PO SCH (09:46)
[2023-04-07] MEDS: Senokot S 8.6-50 MG TAB PO SCH ×2 (09:46→21:41)
[2023-04-07] MEDS: Multivitamin W/ Minerals 1 TAB PO SCH (09:47)
[2023-04-07] MEDS: Folic Acid 1 MG TAB PO SCH (09:47)
[2023-04-07] MEDS: Metoprolol Tartrate 50 MG TAB PO SCH ×2 (09:47→21:45)
[2023-04-07] MEDS: Thiamine 100 MG TAB PO SCH (09:47)
[2023-04-07] MEDS: levETIRAcetam 500 MG/5 ML VIAL SLOW IVP SCH ×2 (09:48→21:48)
[2023-04-07] MEDS: Melatonin 3 MG TAB PO PRN (21:41)
[2023-04-07] MEDS: Cephalexin 250 MG CAP PO SCH (21:41)
[2023-04-08] MEDS ORDERED: levETIRAcetam 500 MG TAB PO SCH (09:00)
[2023-04-08] MEDS: Senokot S 8.6-50 MG TAB PO SCH (11:01)
[2023-04-08] MEDS: Cephalexin 250 MG CAP PO SCH (11:01)
[2023-04-08] MEDS: Polyethylene Glycol 3350 17 GM Packet PO SCH (11:02)
[2023-04-08] MEDS: Thiamine 100 MG TAB PO SCH (11:02)
[2023-04-08] MEDS: Folic Acid 1 MG TAB PO SCH (11:02)
[2023-04-08] MEDS: Lisinopril 20 MG TAB PO SCH (11:02)
[2023-04-08] MEDS: Metoprolol Tartrate 50 MG TAB PO SCH (11:03)
[2023-04-08] MEDS: Multivitamin W/ Minerals 1 TAB PO SCH (11:03)
[2023-04-08] MEDS: Oxazepam 10 MG CAP PO SCH (11:03)
[2023-04-08] MEDS: Tamsulosin HCl 0.4 MG CAP PO SCH (11:03)
[2023-04-08] MEDS ORDERED: levETIRAcetam 500 mg/5 ml Oral Solution PO SCH ×2 (11:15→21:00)
[2023-04-08 15:41] VITALS: BP 104/68; TEMP 97.3
== END 2023-04-08 16:55 | DRG 814 ==
LOC: ERS 19:22 → IMCU/EMU 21:50 → SURG A 03-29 14:37
PROVIDERS: ADMIT Surgery; ATTEND Surgery
PROC: F00ZHZZ Bedside Swallowing and Oral Function Assessment (ICD-10-PCS; principal; 2023-04-01)
DX: S36.031A Moderate laceration of spleen, initial encounter (principal); G93.41 Metabolic encephalopathy; E87.1 Hypo-osmolality and hyponatremia; F10.139 Alcohol abuse with withdrawal, unspecified; S22.41XA Multiple fractures of ribs, right side, initial encounter for closed fracture; G40.89 Other seizures; M62.82 Rhabdomyolysis; L03.113 Cellulitis of right upper limb; E87.20 Acidosis, unspecified; I24.8 Other forms of acute ischemic heart disease; W19.XXXA Unspecified fall, initial encounter; E86.0 Dehydration; I10 Essential (primary) hypertension; E78.5 Hyperlipidemia, unspecified; N40.0 Benign prostatic hyperplasia without lower urinary tract symptoms; R77.8 Other specified abnormalities of plasma proteins; E83.42 Hypomagnesemia; Z79.899 Other long term (current) drug therapy; R41.82 Altered mental status, unspecified; F03.90 Unspecified dementia, unspecified severity, without behavioral disturbance, psychotic disturbance, mood disturbance, and anxiety; R13.10 Dysphagia, unspecified; E83.41 Hypermagnesemia; E87.5 Hyperkalemia; D64.9 Anemia, unspecified
CPT/HCPCS: 36415; 70551; 74018; 74230; 80048; 81001; 82550; 82553; 83605; 83735; 84100; 85025; 85610; 85730; 86850; 86900; 86901; 93005; 94760; 95712; 95819; 95957; 96365; 96366; 96368; 96375; 97139; G0390; J1650; J1940; J1953; J2060; J3475; J3480; J3490; J7050; S0028